=== PATIENT | male | born 1985 | race African-American/Black ===

== ENCOUNTER 2019-02-20 19:31 | Emergency (ER) | payer OTHER ==
[~2019-02-20] VITALS: Ht 185.4 cm; Wt 103.9 kg
[2019-02-20 20:18] VITALS: BP 118/79
--- NOTE | 2019-02-20 20:50 | NUR ---
Patient discharged to home in stable condition. Written and verbal after care instructions given. Patient verbalizes understanding of instruction. Pt ambulatory with a steady gait
== END 2019-02-20 21:00 | disposition home or self-care (01) ==
LOC: ER 19:34
DX: H60.93 Unspecified otitis externa, bilateral (principal); Z88.6 Allergy status to analgesic agent